=== PATIENT | female | born 1995 | race Caucasian/White ===

== ENCOUNTER 2020-12-18 12:47 | Emergency (ER) | payer OTHER ==
[~2020-12-18] VITALS: Ht 160 cm; Wt 93.4 kg
[2020-12-18 12:57] VITALS: Ht 160 cm; Wt 93.4 kg
[2020-12-18 13:54] LABS: BASOPHIL % 0.5 % (0.2-1.3); PLATELET COUNT 291 x10^3mcL (179-408); RED CELL DISTRIBUTION WIDTH 14.3 % (12.3-17.7)
[2020-12-18 15:16] LABS: microscopic required? YES; urine erythrocyte 3+ (NEGATIVE)
[2020-12-18 16:41] VITALS: BP 149/98
== END 2020-12-18 15:40 | disposition home or self-care (01) ==
LOC: ED 12:47
PROVIDERS: Emergency Medicine
DX: O03.9 Complete or unspecified spontaneous abortion without complication (principal)
CPT/HCPCS: J7060